=== PATIENT | male | born 1990 | race Caucasian/White ===

== ENCOUNTER 2018-01-26 15:51 | Emergency (ER) | payer OTHER, SELFPAY ==
[~2018-01-26] VITALS: Ht 182.9 cm; Wt 70.0 kg
[2018-01-26 17:16] VITALS: BP 123/82
== END 2018-01-26 17:19 | disposition home or self-care (01) ==
LOC: ED 16:30
DX: S82.002A Unspecified fracture of left patella, initial encounter for closed fracture (principal); G89.11 Acute pain due to trauma; M25.462 Effusion, left knee; V87.8XXA Person injured in other specified noncollision transport accidents involving motor vehicle (traffic), initial encounter; Y93.55 Activity, bike riding; Y92.828 Other wilderness area as the place of occurrence of the external cause; Y99.8 Other external cause status
CPT/HCPCS: 29505; 99284